=== PATIENT | male | born 1975 | race African-American/Black ===

== ENCOUNTER 2017-02-23 07:35 | Emergency (ER) | payer OTHER ==
[~2017-02-23] VITALS: Ht 172.7 cm; Wt 86.0 kg
[2017-02-23 07:38] VITALS: BP 123/68; PULSE 63; RESP 13; TEMP 97.6; O2SAT 98
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
[2017-02-23] MEDS ORDERED: IBUP800T23 PO (08:22)
[2017-02-23] MEDS ORDERED: ROBA500T PO (08:22)
[2017-02-23] MEDS ORDERED: IBUPROFEN 800 MG TAB PO ONE (08:30)
[2017-02-23] MEDS ORDERED: METHOCARBAMOL 500 MG TAB PO ONE (08:30)
== END 2017-02-23 08:29 | disposition home or self-care (01) ==
LOC: NEPB 07:35
DX: S39.012A Strain of muscle, fascia and tendon of lower back, initial encounter (principal); S46.912A Strain of unspecified muscle, fascia and tendon at shoulder and upper arm level, left arm, initial encounter; V43.52XA Car driver injured in collision with other type car in traffic accident, initial encounter; Y93.9 Activity, unspecified; Y92.9 Unspecified place or not applicable; Y99.9 Unspecified external cause status
CPT/HCPCS: 99283